=== PATIENT | male | born 1985 | race Two or more races ===

== ENCOUNTER → 2021-04-28 | Outpatient (CLI) | payer OTHER ==
[~2021-04-28] MED LIST: PROHANCE 279.3MG/ML 15ML VIAL As Ordered ONE; PROHANCE 279.3MG/ML 5ML VIAL As Ordered ONE
--- NOTE | 2021-04-29 23:18 | REPVR ---
PROCEDURE INFORMATION: Exam: MR Head Without and With Contrast; Internal Auditory Canals Exam date and time: 04/28/2021 6:51 PM Age: 35 years old Clinical indication: Other: Hearing loss RT ear TECHNIQUE: Imaging protocol: MR of the head without and with intravenous contrast. Exam focused on the internal auditory canals. Contrast material: PROHANCE; Contrast volume: 17 ml; Contrast route: INTRAVENOUS (IV); COMPARISON: No relevant prior studies available. FINDINGS: Brain: No intracranial hemorrhage or extra-axial fluid collection. No evidence of mass effect or midline shift. No white matter abnormalities. No restricted diffusion to suggest acute infarct. Normal appearance of cranial nerves on thin T2 sequences. Cerebellopontine angle cisterns are clear. Meckel's caves are clear. Internal auditory canals are clear. No abnormal intracranial enhancement. Ventricles: Ventricles, cisterns, and sulci are normal. Mastoid air cells: Near complete opacification of right mastoid air cells. Bones/joints: Unremarkable. IMPRESSION: 1. Near complete opacification of right mastoid air cells. Recommend correlation with CT temporal bone examination. 2. No acute intracranial findings. Electronically signed by: Óscar Maier On 04/29/2021 23:18:03 PM
== END ==
LOC: M RAD 17:47
PROVIDERS: ATTEND Otolaryngology
DX: H90.41 Sensorineural hearing loss, unilateral, right ear, with unrestricted hearing on the contralateral side (principal); H75.81 Other specified disorders of right middle ear and mastoid in diseases classified elsewhere
CPT/HCPCS: 70553; A9576

== ENCOUNTER → 2021-05-13 | Outpatient (CLI) | payer OTHER ==
--- NOTE | 2021-05-13 08:34 | REPVR ---
PROCEDURE INFORMATION: Exam: CT Temporal Bones Without Contrast. Exam date and time: 05/13/2021 7:29 AM Age: 35 years old Clinical indication: Abnormal findings; Abnormal xray or scan of face; Additional info: Mastoiditis RT ear TECHNIQUE: Imaging protocol: Computed tomography images of the temporal bones without contrast. Radiation optimization: All CT scans at this facility use at least one of these dose optimization techniques: automated exposure control; mA and/or kV adjustment per patient size (includes targeted exams where dose is matched to clinical indication); or iterative reconstruction. COMPARISON: MR (DEFAULT PS SERIES, IAC, DEFAULT PRESENTATION STATE) 04/28/2021 6:21 PM FINDINGS: Right inner ear: Normal. Right ossicles and middle ear: Normal. The middle ear ossicles are intact. Right external auditory canal: Normal. Right facial nerve canal: Normal. Right jugular foramen: No jugular dehiscence. Right carotid canal: No aberrant carotid canal. Right mastoid air cells: There is fluid opacification of scattered mastoid air cells, most pronounced inferiorly. Bony septations are maintained. Left inner ear: Normal. Left ossicles and middle ear: Normal. The middle ear ossicles are intact. Left external auditory canal: Normal. Left facial nerve canal: Normal. Left jugular foramen: No jugular dehiscence. Left carotid canal: No aberrant carotid canal. Left mastoid air cells: Normal. No mastoid effusions. Soft tissues: Unremarkable. IMPRESSION: Fluid opacification of mastoid air cells, most pronounced inferiorly, without loss of bony septations. This most likely reflects effusion. Mastoiditis is a consideration in the appropriate clinical setting. Electronically signed by: Susi Barger On 05/13/2021 08:33:43 AM
== END ==
LOC: M RAD 07:17
PROVIDERS: ATTEND Physician Assistant Medical
DX: H70.91 Unspecified mastoiditis, right ear (principal)

== ENCOUNTER 2021-05-17 11:08 | Day surgery (SDC) | payer OTHER ==
[~2021-05-17] VITALS: Ht 170.2 cm; Wt 88.5 kg
[~2021-05-17 11:08] MED LIST changes: +LR 1,000 ML IV ONE; -PROHANCE 279.3MG/ML 15ML VIAL As Ordered ONE; -PROHANCE 279.3MG/ML 5ML VIAL As Ordered ONE
[2021-05-17] MEDS ORDERED: LIDOCAINE 2% 100MG/5ML SDV (FOR ANES.) As Ordered ONE (11:43)
[2021-05-17] MEDS ORDERED: MIDAZOLAM INJ 2MG/2ML VIAL (J2250 PER 1MG) As Ordered ONE (11:43)
[2021-05-17] MEDS ORDERED: propofoL 200 MG/20 ML VIAL As Ordered ONE (11:43)
[2021-05-17] MEDS ORDERED: fentaNYL 100 MCG/2 ML INJECTION As Ordered ONE (11:43)
[2021-05-17] MEDS ORDERED: CIPRODEX OTIC SUSP 7.5ML As Ordered ONE (12:54)
[2021-05-17] MEDS ORDERED: ONDANSETRON 4MG/2ML VIAL As Ordered ONE (13:36)
[2021-05-17] MEDS ORDERED: dexameTHASONE 4 MG/ML 1ML VIAL (J1100 PER 1MG) As Ordered ONE (13:37)
[2021-05-17] MEDS ORDERED: fentaNYL 100 MCG/2 ML INJECTION IV PRN (14:00)
[2021-05-17] MEDS ORDERED: ONDANSETRON 4MG/2ML VIAL IV PRN (14:00)
[2021-05-17] MEDS ORDERED: LR 1,000 ML IV SCH ×2 (14:00)
[2021-05-17 14:24] VITALS: BP 145/90
== END 2021-05-17 15:25 | disposition home or self-care (01) ==
LOC: M SDC 11:08
PROVIDERS: ATTEND Otolaryngology
DX: H70.91 Unspecified mastoiditis, right ear (principal); Z88.5 Allergy status to narcotic agent
CPT/HCPCS: 69436; J1100; J2250; J2405; J3010; U0002

== ENCOUNTER 2021-08-05 02:08 | Emergency (ER) | payer OTHER ==
[~2021-08-05] VITALS: Ht 167.6 cm; Wt 91.7 kg
[2021-08-05] MEDS ORDERED: TAMSULOSIN 0.4 MG CAP PO ONE (05:00)
[2021-08-05] MEDS ORDERED: FLOM0.4C39 PO (06:05)
[2021-08-05 06:13] VITALS: BP 132/77
== END 2021-08-05 06:14 | disposition home or self-care (01) ==
LOC: M ED 02:08
DX: N13.9 Obstructive and reflux uropathy, unspecified (principal); Z87.442 Personal history of urinary calculi; Z88.5 Allergy status to narcotic agent

== ENCOUNTER → 2022-05-04 | Outpatient (CLI) | payer OTHER ==
[~2022-05-04] MED LIST changes: +FLOM0.4C39 PO; -LR 1,000 ML IV ONE
== END ==
LOC: M PLAIMG 08:48
PROVIDERS: ATTEND Internal Medicine Nephrology
DX: N20.0 Calculus of kidney (principal); K80.20 Calculus of gallbladder without cholecystitis without obstruction; Q63.1 Lobulated, fused and horseshoe kidney; N26.1 Atrophy of kidney (terminal); K57.90 Diverticulosis of intestine, part unspecified, without perforation or abscess without bleeding